=== PATIENT | female | born 1940 | race Caucasian/White ===

== ENCOUNTER → 2016-05-18 | Day surgery (SDC) | payer MEDICARE, OTHER ==
[~2016-05-18] MED LIST: ACETAMINOPHEN PO; ALBUTEROL MININEB NEB; ALLOPURINOL300 MG PO; ATROVENT; COLCRYS0.6 M2 PO; COLCRYS0.6 MG PO; GABAPENTIN600 MG PO; GLUCOPHAGE500 M1 PO; GLUCOTROL PO; HUMIRA40 MG/0.1 SQ; HYDROCHLOROTHIA25 MG PO; HYDROCODON-ACE1 EAC1; INDOMETHACIN50 MG; LASIX; METFORMIN HCL500 M1; METFORMIN HCL500 M2 PO; NEURONTIN600 MG; NEURONTIN600 MG PO; PRANDIN0.5 MG PO; PRAVASTATIN SOD40 MG; PRAVASTATIN SOD40 MG PO; PREDNISONE5 M1; PROVENTIL INH0.5 ML HHN; TRAMADOL HCL50 M1 PO; VITAMIN D-32000 UNIT PO; VITAMIN D32000 UNI1 PO
--- NOTE | ~2016-05-18 | OR ---
Unit #: [id number]: [id number] Patient: MILANA GARCIA [id number] [address] [address] [id number] O MR#: [id number] NAME: MILANA GARCIA ROOM: Date of Procedure: 05/18/2016 Admission Date: 05/18/2016 Surgeon: Tommie Devlin M.D. : 1940 Attending Physician: Tommie Devlin M.D. Primary Care Physician: Kimberley Cantu D.O. OPERATIVE REPORT PREOPERATIVE DIAGNOSES 1. Neck pain. 2. Cervical radiculopathy. 3. Cervical spinal stenosis. 4. Cervical disk herniation. POSTOPERATIVE DIAGNOSES 1. Neck pain. 2. Cervical radiculopathy. 3. Cervical spinal stenosis. 4. Cervical disk herniation. PROCEDURE PERFORMED Cervical epidural steroid injection with fluoroscopic guidance for needle localization. INDICATIONS FOR PROCEDURE The patient is a 75-year-old female at this point with left greater than right upper extremity periscapular pain. She was last treated with a single injection in 06/2015 and did very well until last 3 months or so. Based on history, pathology, symptomatology, and treatment options, we are going to proceed with another epidural steroid injection today. She will likely require injections again down the line based on her pathology, and available treatment options. DESCRIPTION OF PROCEDURE The patient was placed in a seated position. Standard monitors were applied. Sterile prep and drape of the cervical area was performed. The skin then at the C6 level was localized with 1% lidocaine. An 18-gauge BlazeMetertead needle was then advanced via hanging drop technique and fluoroscopic guidance in toward the epidural space. After confirming proper positioning with fluoroscopy and radiographic contrast, a dose of 80 mg of Depo-Medrol and 1 mL of 0.9% saline were deposited. The patient tolerated the procedure otherwise well and was discharged to recovery room in stable condition. Dictated by... Tommie Devlin M.D. LHP/modl Unit #: [id number] #: [id number] Patient: MILANA GARCIA TD: 05/19/2016 00:58 JOB #: [id number] OPERATIVE REPORT Page 1 of 1 X Tommie Devlin MD X PROCEDURE OPERATIVE NOTE
== END | disposition home or self-care (01) ==
LOC: CCSC 10:38
DX: M50.10 Cervical disc disorder with radiculopathy, unspecified cervical region (principal); M48.02 Spinal stenosis, cervical region; E11.9 Type 2 diabetes mellitus without complications; E66.01 Morbid (severe) obesity due to excess calories; M06.9 Rheumatoid arthritis, unspecified
CPT/HCPCS: 82947; J1040; J2250

== ENCOUNTER 2016-08-10 12:12 | Emergency (ER) | payer MEDICARE, OTHER ==
--- NOTE | ~2016-08-10 | US85 ---
[facility] A Service of [facility] RADIOLOGY TEXT RESULTS PATIENT: MILANA GARCIA LOCATION: [facility] : 36 UNIT #: [id number] AGE: [address]: Celina Hoyos MD SEX: F ORDER DR: [id number] [facility] [address] [place], [place] [address] [id number] E MR#: [id number] Acc #: [id number] NAME: MILANA GARCIA. : 1940 SEX: F STUDY DATE/TIME: 08/10/2016 14:26 UNIT: [facility] ROOM: STUDY DESCRIPTION: US LE Veins Unilat or Ltd Stdy Attending Physician: Celina Hoyos M.D. Ordering Physician: Celina Hoyos M.D. Primary Care Physician: Kimberley Cantu D.O. MEDICAL IMAGING REPORT This report is preliminary unless electronic signature is present EXAM Unilateral right lower extremity venous Doppler, 08/10/2016 HISTORY Right foot pain and swelling for 2 weeks. TECHNIQUE Venous ultrasound examination of the right lower extremity was performed using grayscale, spectral Doppler and color flow Doppler imaging. FINDINGS The examination is negative. There is no evidence of right lower extremity deep venous thrombus from the groin to the lower calf. Visualized greater saphenous vein is also patent. IMPRESSION Negative examination. No evidence of right lower extremity deep venous thrombosis. Dictated by... Braulio Hamilton M.D. THIS IS AN ELECTRONICALLY VERIFIED REPORT Braulio Hamilton M.D. at 08/16/2016 10:38 AM Rony TD: 08/10/2016 16:14 JOB #: [id number] MEDICAL IMAGING REPORT Page 1 of 1 COPY
--- NOTE | ~2016-08-10 | CR127 ---
[facility] A Service of [facility] & [facility] RADIOLOGY TEXT RESULTS PATIENT: MILANA GARCIA LOCATION: [facility] : 36 UNIT #: [id number] AGE: [address]: Celina Hoyos MD SEX: F ORDER DR: [id number] [facility] [address] [place], [place] [address] [id number] E MR#: [id number] Acc #: [id number] NAME: MILANA GARCIA. : 1940 SEX: F STUDY DATE/TIME: 08/10/2016 13:38 UNIT: [facility] ROOM: STUDY DESCRIPTION: CR Foot Complete Min 3 View Rt Attending Physician: Celina Hoyos M.D. Ordering Physician: Celina Hoyos M.D. Primary Care Physician: Kimberley Cantu D.O. MEDICAL IMAGING REPORT This report is preliminary unless electronic signature is present EXAM Right foot, 3 views. HISTORY Foot redness and swelling for 2 weeks. FINDINGS Three views of the right foot demonstrate satisfactory bone alignment. No fracture. No acute fracture, joint space narrowing or dislocation. Old healed fracture deformity at the lateral base of the proximal phalanx of the second toe and old healed fractured distal fibular diaphysis. Small posterior and plantar calcaneal spurs. Mild soft tissue swelling over the dorsum of the forefoot. IMPRESSION 1. No acute fracture. 2. Mild soft tissue swelling over the dorsum of the forefoot. Dictated by... Boni Govea M.D. THIS IS AN ELECTRONICALLY VERIFIED REPORT Boni Govea M.D. at 08/11/2016 11:18 PM DFL/alba TD: 08/10/2016 17:09 JOB #: [id number] MEDICAL IMAGING REPORT Page 1 of 1 COPY
[2016-08-10 14:06] LABS: BASOPHIL# 0.2 X10e3 (0-0.3); BASOPHIL% 1.1 % (0-2.5); DIFF IND YES; EOSINOPHIL# 0.6 X10e3 (0-0.7); EOSINOPHIL% 3.6 % (0.0-7.0); HEMATOCRIT 43.1 % (35.0-45.0); LYMPHOCYTE# 5.4 X10e3 (1.0-3.5); LYMPHOCYTE% 34.5 % (17.0-45.0); MEAN CELL VOLUME 93.1 FL (83-96); MEAN CORPUSCULAR HEMOGLOBIN 30.4 PG (28-34); MEAN CORPUSCULAR HGB CONC 32.6 g/dL (30-36); MEAN PLATELET VOLUME 8.7 FL (6.5-11.5); MONOCYTE# 1.7 X10e3 (0-1.0); NEUTROPHIL# 7.7 X10e3 (1.5-7.1); NEUTROPHIL% 49.8 % (40-75); PLATELET COUNT 356 X10e3 (140-420); RED BLOOD COUNT 4.63 X10e (3.90-5.30); RED CELL DISTRIBUTION WIDTH 15.1 % (11.0-15.5); WHITE BLOOD COUNT 15.5 X10e3 (4.0-10.5)
[2016-08-10 14:25] LABS: BILIRUBIN, DIRECT 0.1 mg/dL (0.0-0.2); BILIRUBIN,INDIRECT 0.4 mg/dL (0.0-0.9); BILIRUBIN,TOTAL 0.5 mg/dL (0.2-2.0); BUN/CREATININE RATIO 26.25; CALCIUM SERUM 9.5 mg/dL (8.4-10.2); CREATININE SERUM 0.8 mg/dL (0.6-1.4); GLOM FILT RATE Estimated 71.2 mL/min (>60); POTASSIUM 3.9 mmol/L (3.5-5.1); PROTEIN TOTAL SERUM 8.6 g/dL (6.0-8.3)
[2016-08-10 14:26] LABS: PARTIAL THROMBOPLASTIN TIME 27.6 SECONDS (23.5-31.3); PROTHROMBIN TIME (PATIENT) 11.3 SECONDS (10.0-11.7)
[2016-08-10 14:34] LABS: PLATELET ESTIMATE NORMAL (NORMAL); RBC NORMAL YES
== END 2016-08-10 17:10 | disposition home or self-care (01) ==
LOC: CED 12:12
PROVIDERS: Emergency Medicine
DX: L03.115 Cellulitis of right lower limb (principal); E11.9 Type 2 diabetes mellitus without complications; J44.9 Chronic obstructive pulmonary disease, unspecified; I10 Essential (primary) hypertension; M10.9 Gout, unspecified; Z79.899 Other long term (current) drug therapy
CPT/HCPCS: 36415; 73630; 80048; 80076; 85025; 85610; 85730; 93971; 96374; 99284; J0696